=== PATIENT | female | born 1980 ===

== ENCOUNTER 2017-08-07 17:30 | Emergency (ER) | payer OTHER, MEDICAID ==
[2017-08-07 18:01] VITALS: BP 129/74
--- NOTE | 2017-08-07 18:51 | UC ---
Knee Pain HPI - HPI Summary HPI Summary: Patient states she awoke yesterday with some pain and swelling in her left knee. She denies any history of injury or overuse. She states that she had been having some right hip pain and was favoring her right hip and as a result thinks this is the cause of her left knee pain. She has no fever or chills, she has no current or recent illness aside from the hip pain which is not new she denies any other joint pains. - History of Current Complaint Hx Obtained From: Patient Hx Last Menstrual Period: tubal and ablation Pain Intensity: 6 Aggravating Factor(s): Movement Alleviating Factor(s): Rest Associated Signs And Symptoms: Positive: Swelling. Negative: Redness, Bruising , Fever, Weakness, Numbness, Tingling - Risk Factors Septic Arthritis Risk Factor: Negative <Zuleika Min - Last Filed: 08/07/17 18:45> <Farhad Jones - Last Filed: 08/07/17 20:12> - History of Current Complaint Chief Complaint: UCLowerExtremity Stated Complaint: LEFT KNEE COMPLAINT Time Seen by Provider: 08/07/17 18:44 - Allergies/Home Medications Allergies/Adverse Reactions: Allergies Allergy/AdvReac Type Severity Reaction Status Date / Time Penicillins Allergy Intermediate Rash Verified 08/07/17 18:03 narcotics Allergy Intermediate Rash Uncoded 08/07/17 18:03 PMH/Surg Hx/FS Hx/Imm Hx - Additional Past Medical History Additional PMH: [place], antiphospholipid syndrom but now testing negative for that - Surgical History Surgical History: Yes Surgery Procedure, Year, and Place: cardiac cath- no stents. TUBAL LIGATION, C SECTION, uterine ablation - Social History Occupation: Employed Full-time Lives: With Family Alcohol Use: Occasionally Substance Use Type: None Smoking Status (MU): Heavy Every Day Tobacco Smoker Type: Cigarettes Amount Used/How Often: 1/2 ppd - Immunization History Most Recent Tetanus Shot: PT CAN'T RECALL Vaccination Up to Date: Yes <Zuleika Min - Last Filed: 08/07/17 18:45> Review of Systems Constitutional: Negative Skin: Negative Eyes: Negative ENT: Negative Respiratory: Negative Cardiovascular: Negative Gastrointestinal: Negative Genitourinary: Negative Motor: Negative Neurovascular: Negative Musculoskeletal: Other: - L knee pain/swelling Neurological: Negative Psychological: Negative Is Patient Immunocompromised?: No All Other Systems Reviewed And Are Negative: Yes <PakoZuleika - Last Filed: 08/07/17 18:45> Physical Exam Triage Information Reviewed: Yes Appearance: Well-Appearing Vital Signs: Initial Vital Signs Temp 99.2 F 08/07/17 17:55 Pulse 98 08/07/17 17:55 Resp 16 08/07/17 17:55 BP 129/74 08/07/17 17:55 Pulse Ox 100 08/07/17 17:55 Vital Signs Reviewed: Yes Eyes: Positive: Conjunctiva Clear ENT: Positive: Normal ENT inspection Neck: Positive: Supple, Nontender, No Lymphadenopathy Respiratory: Positive: Lungs clear, Normal breath sounds Cardiovascular: Positive: RRR, No Murmur Abdomen Description: Positive: Nontender, No Organomegaly, Soft Bowel Sounds: Positive: Present Musculoskeletal: Positive: Other: - Both lower extremities exposed except for patient's underwear. Hips are symmetrical and nontender. Left knee when compared to the right is mildly swollen to the superior lateral aspect as well as to the popliteal fossa. Patient notes some tenderness with palpation to the lateral aspect of the knee and posterior knee. There was no tenderness along the joint line. The patella is not ballotable. There was no laxity on valgus, varus, anterior or posterior stressing. Active range of motion is intact but it does cause discomfort in the knee. Left calf is without swelling cords or tenderness. Ankle is nontender .. The foot has full sensorivascular and motor function .foot is nontender Neurological: Positive: Alert Psychological: Positive: Age Appropriate Behavior Skin Exam: Normal <Zuleika Min - Last Filed: 08/07/17 18:45> Vital Signs: Initial Vital Signs Temp 99.2 F 08/07/17 17:55 Pulse 98 08/07/17 17:55 Resp 16 08/07/17 17:55 BP 129/74 08/07/17 17:55 Pulse Ox 100 08/07/17 17:55 <Farhad Jones - Last Filed: 08/07/17 20:12> Diagnostics - Radiology No standard instances Radiology Interpretation Completed By: Radiologist - small joint effusion <Zuleika Min - Last Filed: 08/07/17 18:45> Knee Pain Course/Dx - Course Course Of Treatment: no concern for DVT or infection. small effusion on xray. will tx nsaid, crutches and ortho f/u. no kirsten given pmh that may predispose to clots. - Differential Dx/Diagnosis Provider Diagnoses: L knee pain. L knee effusion <PakoZuleika - Last Filed: 08/07/17 18:45> Discharge - Sign-Out/Discharge Documenting (check all that apply): Discharge/Admit/Transfer - Billing Disposition and Condition Condition: STABLE Disposition: Home <Zuleika Min - Last Filed: 08/07/17 18:45> - Billing Disposition and Condition Condition: STABLE Disposition: Home <Farhad Jones - Last Filed: 08/07/17 20:12> - Discharge Plan Condition: Stable Disposition: HOME Prescriptions: Naproxen [Naprosyn 500 mg tab] 500 mg PO BID #10 tablet Patient Education Materials: Crutch Instructions (ED), Swollen Knee Joint (ED) , Knee Pain (ED) Forms: *Work Release Referrals: Cindy Olivas NP [Primary Care Provider] - If Needed Armen Geronimo MD [Medical Doctor] - As Soon As Possible Additional Instructions: CRUTCH USE UNTIL CLEARED. Per institutional requirements, I have reviewed the chart, however, I was not consulted specifically or made aware of this patient by the above midlevel provider. I did not personally evaluate, interact with , or disposition this patient.
--- NOTE | 2017-08-07 19:39 | RAD ---
Indication: LEFT knee pain posterior lateral aspect of fibula without known injury. Limitation in extension and flexion Comparison: May 29, 2007 radiographs. Technique: LEFT knee: AP, tunnel, lateral, sunrise views. REPORT AND IMPRESSION: Small joint effusion. Negative for fracture, malalignment, or joint space narrowing. Unremarkable soft tissue contours.
== END 2017-08-07 20:07 | disposition home or self-care (01) ==
LOC: UCCORT 17:30
DX: M25.562 Pain in left knee (principal); M25.462 Effusion, left knee; Z88.5 Allergy status to narcotic agent; Z88.0 Allergy status to penicillin; F17.210 Nicotine dependence, cigarettes, uncomplicated
CPT/HCPCS: 99213; G0463